=== PATIENT | female | born 2000 | race Caucasian/White ===

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

== ENCOUNTER 2021-01-25 15:03 | Emergency (ER) | payer SELFPAY ==
[~2021-01-25] VITALS: Ht 172.7 cm; Wt 65.7 kg
[~2021-01-25 15:03] MED LIST: CEPH-264 PO; METR500T PO
[2021-01-25 15:14] VITALS: BP 139/69
--- NOTE | 2021-01-25 15:17 | PHYS DOC ---
Past History Past Medical History: Migraines Past Surgical History: No Surgical History Smoking: Cigarettes Alcohol Use: None Drug Use: Heroin, Methamphetamine Adult General Chief Complaint Chief Complaint: HEAD, FACE, NECK, TRAUMA [facility] HPI Patient is a 20-year-old female presenting for facial pain. Reports was walking down an L-shaped staircase. At the transition point, she reports tripping on her child's toy falling forward and hitting her inferior left orbit on handrail. She subsequently caught herself and braced her fall with outstretched hands before falling down remaining 5 steps. This occurred approximately 1-1/2 h ago. There was no loss of consciousness, no vision changes, no neck pain, no motor or sensory function changes, no gait abnormalities, she has been tolerating p.o., no nausea or vomit, no neuro symptoms. Patient reports she suffered a small 1 cm linear laceration on the inferior portion of her orbit that has been bleeding on and off since onset which is primarily why she came in today for evaluation and management. Review of Systems Review of Systems Fourteen body systems of review of systems have been reviewed. See HPI for pertinent positives and negative responses, other jones all other systems are negative, non-pertinent or non-contributory Allergies Allergies Allergies Coded Allergies Type Severity Reaction Last Updated Verified No Known Drug Allergies 07/15/20 No Physical Exam Physical Exam Constitutional: Pt is oriented to person, place, and time. Pt appears well-developed and well- nourished. HEENT: Head: Normocephalic TMs clear, no hemotympanum Conjunctivae and EOM are normal. Pupils are equal, round, and reactive to light. Oropharynx is clear and moist. No hematomas or lacerations or abrasions to face or scalp OP clear, no blood, no malocclusion, dentition intact Nares clear, no nasal septal hematoma Midface stable but there is mild edema and ecchymosis present to left orbit without any visible and/or palpable abnormalities or step-offs Neck: C-spine midline nontender, no step-offs Cardiovascular: Normal rate, regular rhythm and normal heart sounds. Pulmonary/Chest: Effort normal and breath sounds normal. No respiratory distress. No wheezes. CTA bilaterally Abdominal: Soft. Bowel sounds are normal. Pt exhibits no distension. There is no tenderness. Musculoskeletal: No bony tenderness to extremities, no deformities, full ROM extremities Chest wall stable Pelvis stable and non-tender No vertebral TTP and spine without stepoffs Neurological: Pt is alert and oriented to person, place, and time. Moving all extremities willfully, able to wiggle all fingers and toes Alert and oriented x 3 Motor and sensory function intact Cranial nerves II to XII intact Skin: Skin is warm and dry. No abrasions, small 1 cm linear laceration inferior to left inferior orbit with hemostasis achieved, no foreign body present Psychiatric: Behavior is appropriate for situation Current Patient Data Vital Signs Vital Signs Date Time Temp Pulse Resp B/P (MAP) Pulse Ox O2 Delivery O2 Flow Rate FiO2 01/25/21 15:14 98.0 87 18 139/69 (92) 100 Room Air Vital Signs Date Time Temp Pulse Resp B/P (MAP) Pulse Ox O2 Delivery O2 Flow Rate FiO2 01/25/21 15:14 98.0 87 18 139/69 (92) 100 Room Air EKG EKG [] Radiology/Procedures Radiology/Procedures Orbit radiographs 01/25/2021 CLINICAL HISTORY: Injury to the left orbit. Fall from stairs. PA, Azevedo, lateral, bilateral oblique digital radiographs of the orbits were obtained. No fracture of either orbit is seen. No facial bone fracture is noted. No radiopaque foreign body is seen. The paranasal sinuses are clear. No air- fluid level is seen. IMPRESSION: No orbital fracture is seen. Electronically signed by: Eh Hwang MD (01/25/2021 5:12 PM) [id number] Heart Score C/O Chest Pain: No HEART Score for Chest Pain: HEART Score for Chest Pain Response (Comments) Value History Slighlty/Non-Suspicious 0 Age < 45 0 Risk Factors No Risk Factors 0 Total 0 Risk Factors: Risk Factors: DM, Current or recent (<one month) smoker, HTN, HLP, family history of CAD, obesity. Risk Scores: Risk Factors: DM, Current or recent (<one month) smoker, HTN, HLP, family history of CAD, obesity. Course & Med Decision Making Course & Med Decision Making Well-appearing nontoxic patient with no concerning signs or symptoms on physical exam or ER work-up. Discussed likely diagnosis of contusion of left orbit with subsequent simple laceration Laceration was cleaned. Discussed role of various repair modalities but joint decision was made to pursue Dermabond and Steri-Strip placement given edward perficial nature, location and already well approximated skin borders Patient tolerated this well. Supportive care advised. Strict return precautions discussed. Advised patient to call primary care physician first thing Wednesday morning for repeat evaluation this upcoming week. All questions and concerns addressed prior to departure Margie Disclaimer Margie Disclaimer This electronic medical record was generated, in whole or in part, using a voice recognition dictation system. Departure Departure: Impression: Primary Impression: Contusion of left orbit Additional Impression: Facial laceration Disposition: 01 DC HOME SELF CARE/HOMELESS Condition: STABLE Referrals: ANAI BRAVO (PCP) Patient Instructions: Contusion, Facial Laceration, [id number] Additional Instructions: As discussed prior to your departure, your physical exam and subsequent ER work- up was grossly nonconcerning. There is no indication for further ER work-up or intervention such as antibiotics or updated tetanus shot. As discussed, please be on the look out for concerning signs or symptoms that may present prior to outpatient follow-up. Any of these arise prior to follow-up, please do not hesitate to come back for repeat evaluation. Regardless, I advise you to call your primary care physician first thing Wednesday to review your visit today and discuss next steps of care and potential need for repeat evaluation this upcomin g week. Please continue to ice region multiple times daily for at least 10 minutes, utilize Tylenol and/or ibuprofen for pain Problem Qualifiers TESSA OMER DO Jan 25, 2021 15:17
--- NOTE | 2021-01-25 17:15 | RAD ---
Orbit radiographs 01/25/2021 CLINICAL HISTORY: Injury to the left orbit. Fall from stairs. PA, Azevedo, lateral, bilateral oblique digital radiographs of the orbits were obtained. No fracture o f either orbit is seen. No facial bone fracture is noted. No radiopaque foreign body is seen. The par anasal sinuses are clear. No air-fluid level is seen. IMPRESSION: No orbital fracture is seen. Electronically signed by: Eh Hwang MD (01/25/2021 5:12 PM) [id number]
== END 2021-01-25 17:25 | disposition home or self-care (01) ==
LOC: ER 15:03
DX: S01.81XA Laceration without foreign body of other part of head, initial encounter (principal); S05.12XA Contusion of eyeball and orbital tissues, left eye, initial encounter; G43.909 Migraine, unspecified, not intractable, without status migrainosus; F17.210 Nicotine dependence, cigarettes, uncomplicated; W01.0XXA Fall on same level from slipping, tripping and stumbling without subsequent striking against object, initial encounter; Y93.01 Activity, walking, marching and hiking; Y92.89 Other specified places as the place of occurrence of the external cause; Y99.8 Other external cause status
CPT/HCPCS: 70200; 99284